=== PATIENT | male | born 1970 | race Caucasian/White ===

== ENCOUNTER 2016-11-20 22:24 | Observation (INO) ==
[2016-11-20] MEDS ORDERED: Aspirin 81 MG TAB.CHEW PO ONE (22:33)
[2016-11-20] MEDS ORDERED: Nitroglycerin 0.4 MG TAB.SUBL SL PRN (22:40)
[2016-11-20 22:51] LABS: Hematocrit 42.7 % (37.5-50.1); Hemoglobin 14.3 g/dL (12.9-16.9); Immature Granulocytes % 0.4 % (0-4); Mean Corpuscular HGB Conc 33.5 g/dL (31.6-35.5); Mean Corpuscular Hemoglobin 29.6 pg (28.0-33.3); Mean Corpuscular Volume 88.4 fL (83.0-100.0); Mean Platelet Volume 9.7 fL (9.4-12.4); Monocytes % 8.4 %; Platelet Count 202 K/mcL (140-400); Red Blood Count 4.83 M/mcL (4.19-5.50); Red Cell Distribution Width 12.3 % (11.5-14.5)
[2016-11-20 22:52] LABS: Basophils % 0.4 %; Eosinophils # 0.5 K/mcL (0.0-0.6); Eosinophils % 4.8 %; Lymphocytes # 2.8 K/mcL (0.6-4.6); Monocytes # 0.9 K/mcL (0.0-1.3); Neutrophils # 6.6 K/mcL (1.6-8.9)
--- NOTE | 2016-11-20 22:57 | Emergency Department Note ---
Disposition Clinical Impression: Chest pain Qualifiers: Chest pain type: unspecified Qualified Code(s): R07.9 - Chest pain, unspecified Disposition: Admitted As Inpatient Condition: Good Chest Pain HPI - General Chief Complaint: ED Chest Pain Stated Complaint: chest pain/left arm pain Time Seen by Provider: 11/20/16 22:33 Source: patient, family Mode of arrival: private vehicle Limitations: no limitations Vital Signs Reviewed: Yes Nursing Notes Reviewed: Yes - History of Present Illness HPI Narrative: 46-year-old male no medical history who presents to the ER with a chief complaint of chest pain. Patient states symptoms began around 9:30 this evening at rest. Describes an achiness in the center of his chest that would get worse and better but never go away. He reports during this time he also had some numbness in his left hand. Patient denies prior history of cardiac disease, chest pain, CAD, DVT or PE. No recent trauma. Denies any recent illnesses. No other complaints. Pt complaint: chest pain Onset (ago): hour(s) Time: 21:30 Duration: constant Onset: during rest Pain Location: substernal Severity: moderate Severity scale (1-10): 1 Quality: aching Pain Radiation: LUE Improves with: nothing Worsens with: nothing Associated symptoms: Denies: nausea, vomiting, dyspnea Treatments prior to arrival chest pain: none - Related Data On Oral Contraceptives: No Allergies Allergy/AdvReac Type Severity Reaction Status Date / Time shellfish derived Allergy Anaphylaxis Verified 11/20/16 22:26 All systems ED: reviewed and negative except as stated. Constitutional: Denies: fever Cardiovascular: Reports: chest pain. Denies: palpitations Respiratory: Denies: cough, dyspnea Gastrointestinal: Denies: abdominal pain, nausea, vomiting Chest Pain PMH - Past Medical History Medical history: Reports: no medical history Psychiatric history: Reports: no psych history - Social History Smoking Status: Never smoker Alcohol use: Reports: rarely Drug use: Reports: none Physical Exam - General Limitations: no limitations General appearance: alert, in no apparent distress - Head Head exam: atraumatic, normocephalic, normal inspection - Eye Eye exam: Present: normal appearance, EOMI - ENT ENT exam: normal exam - Neck Neck exam: Present: normal inspection, full ROM - Chest Chest inspection: Present: normal inspection, symmetric chest wall rise. Absent : tenderness - Respiratory Respiratory exam: Present: normal lung sounds bilaterally - Cardiovascular Cardiovascular exam: Present: regular rate, normal rhythm, normal heart sounds - Abdominal Exam Abdominal exam: Present: soft, Non-Tender. Absent: tenderness, distention, rigidity - Extremities Exam Extremities exam: Present: normal inspection, full ROM - Expanded Upper Extremity Exam Shoulder exam: Present: normal inspection, full ROM Arm exam: Present: normal inspection, full ROM Elbow exam: Present: normal inspection, full ROM Forearm/Wrist exam: Present: normal inspection, full ROM Hand exam: Present: normal inspection, full ROM Vascular exam: Normal: radial pulse - Expanded Lower Extremity Exam Hip/Pelvis exam: Present: normal inspection, full ROM Upper leg exam: Present: normal inspection, full ROM Knee exam: Present: normal inspection, full ROM Lower leg exam: Present: normal inspection, full ROM Ankle exam: Present: normal inspection, full ROM Foot/toe exam: Present: normal inspection, full ROM Neurovascular/Tendon exam: Absent: motor deficit, sensory deficit - Neurological Exam Neurological exam: Present: alert, other (GCS 15. Nonfocal neurologic exam.) - Psychiatric Psychiatric exam: Present: normal affect, normal mood - Skin Skin exam: Present: warm, dry, intact, normal color Course Course Narrative: Patient seen and examined. We will obtain an EKG, chest x-ray as well as labs including troponin. Patient given aspirin here and will try sublingual nitroglycerin. - Reevaluation(s) Reevaluation #1: Resolution of chest pain after one sublingual nitroglycerin. Discussed results of imaging and lab work with the patient. He is agreeable with being admitted. Vital Signs Temperature 98.0 F 11/20/16 22:26 Pulse Rate 84 11/20/16 22:26 Respiratory Rate 16 11/20/16 22:26 Blood Pressure 125/83 11/20/16 22:26 O2 Sat by Pulse Oximetry 96 11/20/16 22:26 Temperature 98.0 F 11/20/16 22:26 Pulse Rate 86 11/20/16 22:45 Respiratory Rate 18 11/20/16 22:45 Blood Pressure 141/94 11/20/16 22:45 O2 Sat by Pulse Oximetry 96 11/20/16 22:45 Oxygen Delivery Oxygen Delivery Room Air Chest Pain - MDM Narrative Medical decision making narrative: 46-year-old male presents to the ER due to chest pain. Started roughly at 9: 30. Achiness in the center of his chest with oscillating features. Patient's pain resolved after aspirin and one sublingual nitroglycerin here. EKG demonstrates no ischemic findings. Chest x-ray unremarkable. First troponin within normal limits. Patient agreeable with being admitted. Admitted to the hospitalist service. - Lab Data Lab results reviewed: Yes I reviewed the patient's lab results. Result diagrams: 11/20/16 22:40 11/20/16 22:40 Lab Results 11/20/16 11/20/16 11/20/16 Range/Units 22:40 22:40 22:40 WBC 10.9 (4.3-11.1) K/mcL RBC 4.83 (4.19-5.50) M/mcL Hgb 14.3 (12.9-16.9) g/dL Hct 42.7 (37.5-50.1) % MCV 88.4 (83.0-100.0) fL MCH 29.6 (28.0-33.3) pg MCHC 33.5 (31.6-35.5) g/dL RDW 12.3 (11.5-14.5) % Plt Count 202 (140-400) K/mcL MPV 9.7 (9.4-12.4) fL Immature Gran % 0.4 (0-4) % Seg Neutrophils % 60.0 % Lymphocytes % 26.0 % Monocytes % 8.4 % Eosinophils % 4.8 % Basophils % 0.4 % Neutrophils # 6.6 (1.6-8.9) K/mcL Lymphocytes # 2.8 (0.6-4.6) K/mcL Monocytes # 0.9 (0.0-1.3) K/mcL Eosinophils # 0.5 (0.0-0.6) K/mcL Basophils # 0.0 (0.0-0.2) K/mcL Sodium 139 (136-145) mEq/L Potassium 3.7 (3.5-4.5) mEq/L Chloride 108 (98-109) mEq/L Carbon Dioxide 23 (19-29) mEq/L BUN 12 (8-26) mg/dL Creatinine 0.94 (0.72-1.25) mg/dL Est GFR ( Amer) > 60 (> 60) Est GFR (Non-Af Amer) > 60 (> 60) BUN/Creatinine Ratio 13 (6-26) Glucose 123 H (70-99) mg/dL Calculated Osmolality 289 (280-300) Calcium 8.9 (8.6-10.8) mg/dL Troponin I 0.00 (0-0.03) ng/mL - Radiology Data Radiology results reviewed: Yes I reviewed the patient's radiology results. Chest X-Ray 11/20/16 22:33 IMPRESSION: No acute cardiopulmonary disease. D/ / Robert Franklin MD / Robert Franklin MD Interpreting Provider: Robert Franklin MD - EKG Data EKG attestation: Yes I reviewed and interpreted this EKG. EKG results narrative: EKG demonstrates sinus rhythm with a rate of 84 bpm. Normal axis. Normal intervals. Normal R-wave progression. No gross ST elevations or depressions. No acute ischemic findings. Heart Score - Score History: Moderately Suspicious EKG: Normal Age: 45-65 Risk Factors: No risk factors known Troponin: Less than normal limit HEART Score Total: 2 S.B.A.R. - S.B.A.R. Situation: Demographics, MOA Background: Presenting Complaint, Relevant PMH, Meds, & Allergies Assessment: Course and respsone to treatment, Patient/Family Expectation, Pertinant Lab Results Recommendation: Recommendation based on pending studies, treatments, or consults S.B.A.R. Report Given to: Dr. Bloom S.B.A.RRicky Repor Time: 00:41 Attestation Statement - Attestation Attestation: I, Colten Oglesby MD, personally evaluated this patient and discussed their management with the resident physician. I reviewed the resident's note and agree with the documented findings, medical decision making, and plan of care. 46-year-old male presents to the emergency department with a complaint of substernal chest pain which started about one hour prior to arrival. Onset of pain was while at rest. He describes the pain as a tightness and pressure and squeezing sensation. He also complains of numbness and heaviness in the left arm associated with the pain. Mild shortness of breath. No diaphoresis. No nausea or vomiting. No prior history of any cardiac problems. No history of hypertension or diabetes. Patient is a nonsmoker. Patient rated the pain at 10 at the worst. At present he rates the pain a 2. On examination patient is a well-developed obese male in no acute distress. He is alert and oriented 3. There is no cyanosis or diaphoresis. Chest is nontender to palpation. Breath sounds are clear and equal bilaterally. Heart regular rate and rhythm. Abdomen soft and nontender with normal bowel sounds. No pedal edema. EKG shows a normal sinus rhythm with no acute ischemic changes. Chest x-ray negative. Labs reviewed and unremarkable. Troponin normal. The hospitalist, Dr. Bloom, was consulted and accepted admission of the patient.
[2016-11-20 23:04] LABS: BUN/Creatinine Ratio 13 (6-26); Blood Urea Nitrogen 12 mg/dL (8-26); Calcium 8.9 mg/dL (8.6-10.8); Carbon Dioxide 23 mEq/L (19-29); Chloride 108 mEq/L (98-109); Glucose 123 mg/dL (70-99); Osmolality,Calculated 289 (280-300); Potassium 3.7 mEq/L (3.5-4.5); Sodium 139 mEq/L (136-145); eGFR For African Americans > 60 (> 60); eGFR For Non-African Americans > 60 (> 60)
--- NOTE | 2016-11-21 01:59 | Internal Med History&Physical ---
Date of Encounter: 11/21/16 Time of Encounter: 01:58 Assessment and Plan (1) Chest pain Current visit: Yes Status: Acute Patient has no known history of coronary artery disease but he presents with atypical chest pain that is concerning, he also has risk factors for CAD; obesity, smoking history and family history, his admission EKG was normal sinus with no ischemic changes, his cardiac enzymes were unremarkable, we will cycle troponin, monitor telemetry, check A1c/lipid profile in a.m. for further risk stratification, start aspirin /Lipitor, NPO except medications and ice chips pending stress test, further direction depends on stress test findings Qualifiers: Chest pain type: precordial pain Qualified Code(s): R07.2 - Precordial pain (2) Obesity (BMI 30.0-34.9) Current visit: Yes Status: Chronic We will get nutrition to eap counselor him on diet Internal Medicine - H&P: HPI Chief complaint: Chest pain Admitted From: Emergency Dept Plans for Post Hospital Care: Home History of present illness: Mr. Carrillo is a 46 year old male with no prior history of [place] or documented CAD who came to the ER today with chest pain. He reports that he was in his usual state of health and at rest around 9:30 PM on 11/20/16 when he began experiencing chest pain. It was located retrosternally, it was tight/squeezing in character, it radiated to the left arm up to the mid forearm. The pain was constant but had intermittent peaks of 10/10 in severity with no relieving or aggravating factors but pain was finally relieved in the ER with nitroglycerin sublingual at presentation. He denied any association with lightheadedness, shortness of breath, nausea, vomiting, palpitation, or feeling of apprehension. He however admits to diaphoresis. This is his 1st such episode of chest pain. No prior chest pain workup. Past Med Surg Social Fam HX - Past Medical History Source: patient Medical history: no medical history Psychiatric history: no psych history - Past Surgical History Surgical History: no surgical history - Social History Smoking Status: Former smoker (quit >10 years ago) Smokeless Tobacco Status: No Alcohol use: rarely Drug use: none Current living situation: Home - Independent, With Family Activity Level: Independent ambulation - Family History Father Adopted: [place]: [place] Family Member Ethnicity: Non- Age at : 68 Cause of : stroke Hx Family Cardiac Disorders: Yes Grandmother Name: rebeca Living Status: Hx Family Endocrine Disorder: Yes (DM) - Additional Family History Additional family history: father had CAD s/p CABG, he also had HTN and DM, his paternal grandfather had HTN, paternal grandmother had DM, no known family history of [place] to his knowledge Internal Medicine - H&P: Meds 3 Allergy/AdvReac Type Severity Reaction Status Date / Time shellfish derived Allergy Anaphylaxis Verified 11/20/16 22:26 All Systems PM: A 10-system review of systems was performed and is negative for pertinent findings except as documented above in the HPI. - Constitutional Vitals: Temp Pulse Resp BP Pulse Ox 98.0 F 86 18 141/94 96 11/20/16 22:26 11/20/16 22:45 11/20/16 22:45 11/20/16 22:45 11/20/16 22:45 GENERAL: Adult male, obese looking, lying in bed, Alert, not in obvious pain or distress HEENT: NC/AT, EOMI, PERRLA, anicteric sclera, normal conjunctiva, short thick neck, clear nares, moist mucous membranes, RESP: Lungs are clear to auscultation bilaterally, with good AE, no crackles or wheeze CARDIO: Normal heart sounds with RRR, no murmurs, no JVD, no ankle edema GI: Soft, full, no tenderness, no organomegaly felt, normal bowel sounds heard MUSCULOSKELETAL: Grossly normal movements bilaterally, no deformities noted, NEUROLOGIC: CN 2-12 intact grossly. No gross motor/sensory deficit appreciated, PSYCHIATRY: AAO x 3. Mood is fair SKIN: multiple tattoos on bilateral upper extremities and back Internal Med - H&P Results - Labs CBC & Chem 7: 11/20/16 22:40 11/20/16 22:40 - EKG Data -: EKG Interpreted by Myself EKG shows normal: sinus rhythm, axis Rate: normal - EKG Data Prior EKG available for review: no - Diagnostic Studies Chest x-ray Status: image reviewed by me
[2016-11-21] MEDS ORDERED: Naloxone 0.4 MG/ML INJ IVP PRN (02:15)
[2016-11-21] MEDS ORDERED: *HR* Heparin 5,000 UNIT/ML VIAL SQ SCH (06:00)
[2016-11-21] MEDS ORDERED: Regadenoson 0.4 MG/5 ML SYRINGE IVP ONE (06:11)
[2016-11-21 06:55] LABS: Hemoglobin A1C 5.7 %
[2016-11-21 07:01] LABS: Chol/HDL Ratio 5.4 (0-4.9)
[2016-11-21 07:09] VITALS: BP 120/78
[2016-11-21] MEDS ORDERED: Aspirin 81 MG TAB.CHEW PO SCH (09:00)
--- NOTE | 2016-11-21 13:49 | Discharge Summary ---
Date of Encounter: 11/21/16 Time of Encounter: 13:47 - Discharge Diagnosis (1) Chest pain Priority: Primary Status: Acute Qualifiers: Chest pain type: precordial pain Qualified Code(s): R07.2 - Precordial pain (2) Hyperlipidemia Priority: Secondary Status: Chronic Qualifiers: Hyperlipidemia type: unspecified Qualified Code(s): E78.5 - Hyperlipidemia , unspecified (3) Obesity (BMI 30.0-34.9) Priority: Secondary Status: Chronic - Discharge Medications Prescriptions: Atorvastatin [Lipitor] 40 mg PO HS #30 tablet Home Medications: Atorvastatin [Lipitor] 40 mg PO HS #30 tablet 11/21/16 [Rx] Allergies/Adverse Reactions: 3 Allergy/AdvReac Type Severity Reaction Status Date / Time shellfish derived Allergy Anaphylaxis Verified 11/20/16 22:26 Procedures/tests Complete & Pending: Procedures Performed prior 72 hours Category Date Time Status NM rajni perf SPECT multi [NM] Routine Exams 11/21/16 02:17 Taken SP pharm nuclear stress Routine Y 11/21/16 02:16 Completed Date of admission: 11/21/16 00:52 Primary care physician: PCP NONE Consults: 11/21/16 02:30 Consult to Nutrition [CONS] Routine Comment: Consulting Provider: NUTRITION Reason for Dietary Consult: Diet Education Discharging clinician: Maira Gar Anticipated date of discharge: 11/21/16 - Patient Status Disposition: Home, Self-Care Condition: Good Functional capacity at discharge: independent ambulation Overall status at discharge: patient is progressing back to baseline - Discharge Instructions Instructions: Atorvastatin (By mouth), Chest Pain (DC) Follow Up With: NONE,PCP [Primary Care Provider] - (patient said that his is a nurse and would take care of it ) Cristal Juares [Family Provider] - Additional Instructions: F/up with PCP in 1-2 weeks, needs PCP - Diet and Activity Activity: resume usual activities as tolerated Diet: low fat, low cholesterol Hospital course: Mr. Carrillo is a 46 year old male with no significant past medical history admitted with chest pain. Initial EKG, labs, chest x-ray showed no acute abnormality. Telemetry monitoring remained uneventful. Serial troponins were negative. Nuclear stress test was done which showed no evidence of ischemia or infarct. Patient is currently chest pain-free and is medically stable for discharge, with outpatient follow-up. His lipid profile did not reveal LDL cholesterol of 161 and he is being started on statin. He remained hemodynamically stable. - Time Spent with Patient Total time spent providing and/or coordinating discharge services: Greater than 30 minutes (40 min) - Constitutional Vitals: Temp Pulse Resp BP Pulse Ox 97.5 F L 62 15 120/78 97 11/21/16 07:08 11/21/16 07:08 11/21/16 07:08 11/21/16 07:08 11/21/16 07:08 General appearance: Present: A&O X 3, obese, answers questions appropriately - Respiratory Respiratory exam: Present: CTAB. Absent: accessory muscle use, rales, rhonchi, wheezes - Cardiovascular Cardiovascular exam: Present: RRR, +S1, +S2. Absent: diastolic murmur, gallop, rubs, systolic murmur
--- NOTE | 2016-11-21 19:07 | Electrocardiograph Report ---
[place] [id number] Test Date: 2016-11-20 Pat Name: Abilio Carrillo Department: 104 Room: [facility] Gender: M Triage Registered Nurse: JS : 1970 Requested By: Kemal Garvin Order Number: [id number] Reading MD: Bernadette Daniels Measurements Intervals [place] Rate: 84 P: 62 CT: 146 QRS: 25 QRSD: 105 T: 46 QT: 364 QTc: 405 Interpretive Statements SINUS RHYTHM POSSIBLE RIGHT VENTRICULAR CONDUCTION DELAY Electronically Signed On 11-21-2016 19:05:52 EDT by Bernadette Daniels
== END 2016-11-21 16:30 | disposition home or self-care (01) ==
LOC: EMEROO 22:24 → 2NENU 22:24 → SUATTDRO 11-21 00:52 → 2NENU 11-21 01:42
PROVIDERS: ADMIT Internal Medicine; ATTEND Internal Medicine